=== PATIENT | male | born 1960 | race Caucasian/White ===

== ENCOUNTER 2018-12-06 16:29 | Emergency (ER) | payer SELFPAY ==
[~2018-12-06] VITALS: Ht 182.9 cm; Wt 93.2 kg
[~2018-12-06 16:29] MED LIST: NO HOME MEDICATIONS
[2018-12-06 16:31] VITALS: TEMP 97.9
[2018-12-06 17:06] VITALS: BP 154/103; PULSE 54
== END 2018-12-06 17:19 | disposition home or self-care (01) ==
LOC: COL.ER 16:29
DX: R55 Syncope and collapse (principal); R41.82 Altered mental status, unspecified

== ENCOUNTER 2018-12-13 13:12 | Outpatient (RCR) | payer OTHER | END 2019-01-30 15:26 | disposition home or self-care (01) | LOC: WSOH 13:12 | DX: J68.2 Upper respiratory inflammation due to chemicals, gases, fumes and vapors, not elsewhere classified (principal); X58.XXXA Exposure to other specified factors, initial encounter; Y92.214 College as the place of occurrence of the external cause; Y93.89 Activity, other specified; Y99.0 Civilian activity done for income or pay ==